=== PATIENT | male | born 2000 | race Two or more races ===

== ENCOUNTER 2025-04-01 17:24 | Emergency (ER) | payer SELFPAY ==
[2025-04-01] MEDS: Acetaminophen 500 MG Tab PO ONE (18:18)
[2025-04-01] MEDS: Ibuprofen 600 MG Tab PO ONE (18:19)
== END 2025-04-01 18:55 | disposition home or self-care (01) ==
LOC: MW.ED 17:24
DX: S40.012A Contusion of left shoulder, initial encounter (principal); F17.200 Nicotine dependence, unspecified, uncomplicated; W11.XXXA Fall on and from ladder, initial encounter
CPT/HCPCS: 73030; 99283; A9270; 99282